=== PATIENT | male | born 1980 | race American Indian/Alaskan Native ===

== ENCOUNTER 2016-06-20 02:57 | Emergency (ER) | payer OTHER ==
[2016-06-20 04:08] VITALS: BP 121/78
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
== END 2016-06-20 06:25 | disposition home or self-care (01) ==
LOC: ED 02:57
DX: M25.511 Pain in right shoulder (principal); V49.9XXA Car occupant (driver) (passenger) injured in unspecified traffic accident, initial encounter; Y93.89 Activity, other specified; Y99.8 Other external cause status; Y92.89 Other specified places as the place of occurrence of the external cause
CPT/HCPCS: 99282